=== PATIENT | female | born 2000 | race Caucasian/White ===

== ENCOUNTER 2018-07-30 02:11 | Inpatient (IN) | payer MEDICAID ==
[~2018-07-30] VITALS: Ht 154.9 cm; Wt 52.2 kg
--- NOTE | 2018-07-30 02:11 | NUR ---
BIBA BLS TO ER BED 6
[2018-07-30 02:14] VITALS: BP 122/89
--- NOTE | 2018-07-30 02:15 | NUR ---
PT DISROBED COMPLETELY AND ALL CLOTHING HANDED OVER TO SECURITY ALONG WITH PERSONAL BELONGINGS FOR SAFEKEEPING. BEDSIDE EQUIPMENT AND OTHER CABLES REMOVED FROM ROOM WITH ALL CABINETS AND CONTAINERS LOCKED AND SECURED. SITTER PLACED AT BEDSIDE FOR MONITORING.
--- NOTE | 2018-07-30 02:15 | NUR ---
BIBA FOR TYLENOL OVERDOSE. PT ALERT AND ORIENTED ANSWERING APPROPRIATELY QUESTIONS. PT STATES "NOBODY WANTS HER HERE. HER BABY'S DADDY SAYS SHE'S NO GOOD. PT STATES HERE PARENTS DONT WANT HER. PT STATING HER BABY'S DADDY TOLD HER SHE WAS NOT A GOOD MOTHER AND DOES NOT NEED TO BE AROUND THE BABY." PT HAS ATTEMPTED SUICIDE 2 1/2 YEARS AGO. PT DENIES N/V/D; SKIN IS PINK/WARM/DRY; AAOX4 WITH EVEN AND STEADY GAIT; LUNGS CLEAR BL; HR EVEN AND REGULAR; PATIENT STATES PAIN OF 0/10 AT THIS TIME; VSS; PATIENT POSITIONED FOR COMFORT; HOB ELEVATED; BEDRAILS UP X2; BED DOWN. ER MD MADE AWARE OF PT STATUS.
--- NOTE | 2018-07-30 02:19 | NUR ---
Patient being evaluated by physician at bedside.
[2018-07-30] MEDS ORDERED: ONDANSETRON 4 MG/2 ML VIAL IVP ONE (02:20)
[2018-07-30] MEDS ORDERED: NACL 0.9% 1,000 ML IV ONE ×2 (02:20→03:05)
--- NOTE | 2018-07-30 02:21 | NUR ---
POISON CONTROL CALLED SPOKE TO SHREYA. ADVISED TO GIVE ACTIVATED CHARCOAL, LABS- CMP/ CBC/UA/UDS/SALICYLATES LEVEL, MONITOR AND RE-EVAL FOR 6HOURS, IVF, REPEAT LABS IN 4 HOUR. MONITOR PT FOR S/S OF METABOLIC ACIDOSIS, SEIZURES, AND RENAL INSUFFICIENCY.
[2018-07-30] MEDS ORDERED: ACTIVATED CHARCOAL 50 GM/240 ML TUBE PO ONE (02:25)
--- NOTE | 2018-07-30 02:30 | NUR ---
# 14 FR Urinary catheter inserted utilizing sterile technique. No return of urine at this time. I/O CATH left in place for urine output. Pt tolerated procedure well.
--- NOTE | 2018-07-30 02:35 | NUR ---
EKG PERFORMED AT BEDSIDE WITH MUKUL BENSON PRESENT. PT COVERED IN GOWN AND BLANKET DURING PROCEDURE.
[2018-07-30 02:50] LABS: BASOPHILS % (AUTO) 0.4 % (0.0-2.0); EOSINOPHILS # (AUTO) 0.1 K/uL (0-0.4); EOSINOPHILS % (AUTO) 0.5 % (0.0-4.0); HEMATOCRIT 37.8 % (36-48); HEMOGLOBIN 12.3 g/dL (12.0-16.0); LYMPHOCYTES # (AUTO) 2.6 K/uL (2.5-16.5); LYMPHOCYTES % (AUTO) 20.9 % (20.5-51.1); MEAN CORPUSCULAR HEMOGLOBIN 28 pg (27-31); MEAN CORPUSCULAR HGB CONC 33 g/dL (33-37); MEAN CORPUSCULAR VOLUME 86.1 fL (80-94); MONOCYTES # (AUTO) 0.9 K/uL (0.8-1.0); MONOCYTES % (AUTO) 6.9 % (1.7-9.3); NEUTROPHILS # (AUTO) 8.8 K/uL (1.8-7.7); NEUTROPHILS % (AUTO) 71.3 % (42.2-75.2); PLATELET COUNT (AUTO) 361 K/uL (140-450); RED BLOOD CELL COUNT(AUTO) 4.39 MIL/uL (4.20-5.40); RED CELL DISTRIBUTION WIDTH 15.6 % (11.6-13.7); WHITE BLOOD COUNT (AUTO) 12.4 K/uL (4.5-11.0)
[2018-07-30 02:59] LABS: CARBON DIOXIDE 25.3 mmol/L (21-32); CHLORIDE 105 mmol/L (98-107); CREATININE 0.5 mg/dL (0.6-1.3); GFR ARICAN-AMERICAN 202 mL/min (>90); GLUCOSE 92 mg/dL (74-106); POTASSIUM 3.3 mmol/L (3.5-5.1); SODIUM SERUM 144 mmol/L (136-145); UREA NITROGEN, BLOOD 4 mg/dL (7-18)
[2018-07-30 03:05] LABS: ACETAMINOPHEN < 0.5 ug/ml (10-30); ALBUMIN 4.1 g/dL (3.4-5.0); ASPARTATE AMINOTRANSFERASE 19 U/L (15-37); SALICYLATE < 2.8 mg/dL (2.8-20.0); TOTAL BILIRUBIN 0.2 mg/dL (0.0-1.0)
[2018-07-30] MEDS ORDERED: KCL 20 MEQ/WATER INJ PREMIX 100 ML IV ONE (03:05)
--- NOTE | 2018-07-30 03:15 | NUR ---
NO URINE PRODUCED AT THIS TIME. I/O CATH IN PLACE. PT SLEEPING, EASILY AROUSED.
[2018-07-30] MEDS ORDERED: ONDANSETRON 4 MG/2 ML VIAL IM/IVP PRN (03:40)
[2018-07-30] MEDS ORDERED: ACETAMINOPHEN 325 MG TAB PO PRN (03:40)
[2018-07-30] MEDS ORDERED: DOCUSATE SODIUM 100 MG GELCAP PO PRN (03:40)
--- NOTE | 2018-07-30 03:50 | NUR ---
URINE COLLECTED FROM I/O CATH. I/O CATH REMOVED. PT TOLERATED WELL.
--- NOTE | 2018-07-30 03:54 | NUR ---
Pt transferred to Tele ROOM 111B via BED.
[2018-07-30 04:00] LABS: APPEARANCE,URINE CLEAR (CLEAR); BILIRUBIN,URINE NEGATIVE (NEGATIVE); BLOOD, URINE NEGATIVE (NEGATIVE); COLOR,URINE YELLOW (YELLOW); LEUKOCYTE ESTERASE ,URINE 1+ (NEGATIVE); NITRITE, URINE NEGATIVE (NEGATIVE); PH,URINE 6.5 (5.0-9.0); UGLUCOSE NEGATIVE (NEGATIVE)
[2018-07-30] MEDS ORDERED: NACL 0.9% 1,000 ML IV SCH (04:00)
[2018-07-30 04:05] VITALS: BP 104/64
--- NOTE | 2018-07-30 04:05 | NUR ---
Patient will be admitted to care of DR MAHER. Admited to TELE. Will go to room 111B. Belongings list completed. Report to MUKUL BOWERS.
--- NOTE | 2018-07-30 04:05 | NUR ---
PT ARRIVED ON UNIT VIA [facility] WITH ER NURSE. PT IS AWAKE AND QUIET. PT ABLE TO AMBULATE FROM [facility] INTO BED. RESPIRATIONS ARE EVEN AND UNLABORED. MRSA SWAB COLLECTED. VS TAKEN. IV ACCESS IN L AC 20G WITH POTASSIUM INFUSING. IV IS PATENT AND INTACT. BEDSIDE EQUIPMENT AND OTHER CABLES REMOVED FROM ROOM. . IS AT BEDSIDE SPEAKING WITH PT. PT ANSWERING ALL QUESTIONS AND BECOMING EMOTIONAL. BED IS LOCKED, LOW POSITION WITH SIDE RAILS UP X2. SITTER IN ROOM. WILL CONTINUE TO MONITOR PT.
[2018-07-30 04:10] LABS: BARBITURATE, URINE NEG. ng/ml (NEG <=200); BENZODIAZEPINE, URINE NEG. ng/mL (NEG <=200); CANNABINOID, URINE NEG. ng/mL (NEG <=50); COCAINE, URINE NEG. ng/mL (NEG <=300); OPIATE, URINE NEG. ng/mL (NEG <=2000); PHENCYCLIDINE SCREEN,URINE NEG. ng/mL (NEG <=25); RBC,URINE 0-5 (RARE) /HPF (0-5)
[2018-07-30 04:12] LABS: PROTHROMBIN TIME 10.4 secs (10.8-13.4)
[2018-07-30 04:14] LABS: MAGNESIUM 1.9 mg/dL (1.8-2.4); PHOSPHORUS 2.8 mg/dL (2.5-4.9); THYROID STIMULATING HORMONE 1.57 uIU/mL (0.34-3.74)
--- NOTE | 2018-07-30 04:58 | NUR ---
PT NOW SLEEPING COMFORTABLY IN BED. NO SIGNS OR SYMPTOMS OF DISTRESS. 1:1 SITTER IN ROOM. WILL CONTINUE TO MONITOR.
--- NOTE | 2018-07-30 05:45 | NUR ---
NEW BAG OF IVF STARTED. PT SLEEPING COMFORTABLY IN BED. 1:1 SITTER IN ROOM. NO S/SX OF DISTRESS WILL CONTINUE TO MONITOR.
--- NOTE | 2018-07-30 06:02 | NUR ---
[employer] GOODS STOCK CLERK AT BEDSIDE TO DRAW LABS.
--- NOTE | 2018-07-30 07:10 | NUR ---
endorsed pt to day shift nurse for continuity of care. pt in stable condition.
--- NOTE | 2018-07-30 07:11 | NUR ---
RECEIVED REPORT FROM MANAGER PERFORMANCE RN AT BEDSIDE FOR CONTINUITY OF CARE. PATIENT SLEEPING COMFORTABLY IN BED, RESPIRATIONS EVEN AND UNLABORED ON ROOM AIR. IV SITE PATENT AND INTACT, INFUSING IVF WELL. PATIENT DX IS 5150 FOR SI. SAFETY PRECAUTION IN PLACE, 1:1 SITTER AT BEDSIDE, WILL CONTINUE TO MONITOR PATIENT.
--- NOTE | 2018-07-30 07:53 | NUR ---
PAGED DR. [employer] AT [phone] TO FOLLOW UP WITH CONSULT. SPOKE TO JEANA AT THE EXCHANGE, DR. ALTAMIRANO TRAIN MASTER FOR THE WEEKEND, PAGED WAS SENT OUT. WILL WAIT FOR DR. ALTAMIRANO TO COME AND EVALUATE THE PATIENT.
[2018-07-30 08:00] VITALS: BP 99/47
[2018-07-30] MEDS ORDERED: cefTRIAXone 2,000 MG in DEXTROSE 5% 100 ML IV SCH (08:00)
[2018-07-30 08:25] LABS: ANION GAP 14.4 (8-16); CREATININE 0.5 mg/dL (0.6-1.3); POTASSIUM 3.4 mmol/L (3.5-5.1)
[2018-07-30 08:33] LABS: ACETAMINOPHEN 0.8 ug/ml (10-30); ALBUMIN 3.1 g/dL (3.4-5.0); TOTAL BILIRUBIN 0.1 mg/dL (0.0-1.0)
--- NOTE | 2018-07-30 08:40 | NUR ---
CASSANDRA FROM POISON CONTROL CALLED ASKING FOR UPDATE ABOUT PATIENT. INFORMED HIM OF PATIENT'S INITIAL TYLENOL LEVEL AND FOLLOW UP TEST RESULTS. HE STATED PER POISON CONTROL'S STANDBY WITH PATIENT'S STABLE VS, CASE CLOSED FROM THEIR STANDPOINT. RN VERBALIZED UNDERSTANDING.
[2018-07-30] MEDS ORDERED: LACTOBACILLUS RHAMNOSUS GG 1 EACH CAP PO SCH (09:00)
--- NOTE | 2018-07-30 09:00 | NUR ---
CALLED DR. ALTAM[facility]O[employer]. THEY SAID DR. ESTELA ALTAMIRANO WARDROBE SPECIALIST. CALLED DR. ESTELA ALTAMIRANO ON HIS CELL PHONE AT [phone]. DR. ALTAMIRANO ANSWERED, STATED THAT DR. MOISE [facility], INFORM RN TO CALL DR. MOISE, IF NO ANSWER, TO CALL HIM BACK. RN VERBALIZED UNDERSTANDING. PASSED MESSAGE ONTO CR[employer] BALANCE SPECIALISTAMRIT.
--- NOTE | 2018-07-30 09:05 | NUR ---
[facility] [employer] [facility] CALLED DR ESTELA ALTAMIRANO AND INFORMED HIM THAT DR. MOISE HAS NOT COME TO EVALUATE PATIENT SINCE CONSULT WAS CALLED IN. DR. ALTAMIRANO STATED THAT HE WILL COME IN TODAY TO SEE THE PATIENT.
--- NOTE | 2018-07-30 09:09 | NUR ---
PATIENT MOVED FROM ROOM 111B TO 110A, PATIENT TOLERATED MOVE WELL. ORDERED MEDICATIONS GIVEN. PATIENT TOLERATED THEM WELL. PATIENT NOW BACK TO SLEEPING COMFORTABLY IN BED. NO S/S OF DISTRESS NOTED. 1:1 SITTER AT BEDSIDE. WILL CONTINUE TO MONITOR PATIENT.
--- NOTE | 2018-07-30 10:35 | NUR ---
PATIENT SLEEPING IN BED COMFORTABLY, RESPIRATIONS EVEN AND UNLABORED ON ROOM AIR. 1:[address], CALL LIGHT WITHIN REACH. WILL CONTINUE TO MONITOR PATIENT.
--- NOTE | 2018-07-30 11:25 | NUR ---
DR. ESTELA ALTAMIRANO IN TO SEE THE PATIENT. WILL WAIT FOR HIS EVALUATION.
[2018-07-30 11:45] LABS: BASOPHILS # (AUTO) 0.1 K/uL (0.00-0.22); BASOPHILS % (AUTO) 0.7 % (0.0-2.0); EOSINOPHILS # (AUTO) 0.1 K/uL (0-0.4); EOSINOPHILS % (AUTO) 0.9 % (0.0-4.0); HEMATOCRIT 39.4 % (36-48); HEMOGLOBIN 12.7 g/dL (12.0-16.0); LYMPHOCYTES # (AUTO) 2.7 K/uL (2.5-16.5); LYMPHOCYTES % (AUTO) 28.8 % (20.5-51.1); MEAN CORPUSCULAR HEMOGLOBIN 28 pg (27-31); MEAN CORPUSCULAR HGB CONC 32 g/dL (33-37); MEAN CORPUSCULAR VOLUME 86.1 fL (80-94); MONOCYTES # (AUTO) 0.8 K/uL (0.8-1.0); NEUTROPHILS # (AUTO) 5.6 K/uL (1.8-7.7); NEUTROPHILS % (AUTO) 60.6 % (42.2-75.2); PLATELET COUNT (AUTO) 339 K/uL (140-450); RED BLOOD CELL COUNT(AUTO) 4.58 MIL/uL (4.20-5.40); RED CELL DISTRIBUTION WIDTH 15.9 % (11.6-13.7); WHITE BLOOD COUNT (AUTO) 9.2 K/uL (4.5-11.0)
[2018-07-30 11:53] LABS: ANION GAP 13.1 (8-16); CARBON DIOXIDE 24.6 mmol/L (21-32); CREATININE 0.6 mg/dL (0.6-1.3); POTASSIUM 3.7 mmol/L (3.5-5.1)
[2018-07-30 12:00] VITALS: BP 92/49
--- NOTE | 2018-07-30 12:00 | NUR ---
PATIENT CLEARED FROM [address] ESTELA ALTAMIRANO. INFORMED DR. MAYNARD. WAITING FOR ACETAMINOPHEN LAB RESULTS.
--- NOTE | 2018-07-30 12:30 | NUR ---
LAB RESULTS OUT, DR. MAYNARD INFORMED. NEW DISCHARGE ORDER IN. SECURITY WAS PAGED TO BRING PATIENT'S BELONGINGS. WAITING FOR SECURITY.
--- NOTE | 2018-07-30 12:35 | NUR ---
SECURITY BROUGHT PATIENT'S BELONGINGS.
[2018-07-30] MEDS ORDERED: INFLUENZA VIRUS VACCINE QUAD 0.5 ML SYR IMVAC PRN (12:55)
--- NOTE | 2018-07-30 12:55 | NUR ---
FOUR ATTEMPTS TO CALL PATIENT'S BOYFRIEND, RANJAN, WHO SHE LIVES WITH, AT [phone]. NO ANSWER, CANNOT LEAVE MESSAGE. PATIENT HAS NOT SPOKEN TO HER FAMILY IN TWO YEARS. DOES NOT WANT TO CONTACT THEM. SHE DOES NOT WANT TO CONTACT HER BOYFRIEND TO INFORM HIM THAT SHE IS COMING HOME. ,"I JUST WANT TO GO HOME". RN VERBALIZED UNDERSTANDING.
--- NOTE | 2018-07-30 13:10 | NUR ---
FLU VACCINE GIVEN. PATIENT TOLERATED IT WELL. TELE MONITOR REMOVED, IV REMOVED, IV CATHETER INTACT. ID BANDS CUT. PATIENT TOLERATED THEM WELL. DISCHARGE INSTRUCTIONS AND EDUCATION ABOUT SUICIDAL THOUGHTS GIVEN. PATIENT VERBALIZED UNDERSTANDING. PATIENT NOW CHANGED INTO HER OWN CLOTHING AND WILL WAIT FOR DISCHARGE.
--- NOTE | 2018-07-30 13:45 | NUR ---
NO S/S OF REACTION NOTED FROM FLU VACCINE. PATIENT AMBULATED OFF FLOOR WITH RN. PATIENT DISCHARGED HOME. PATIENT TOOK ALL HER BELONGINGS WITH HER. PATIENT IN STABLE CONDITION.
== END 2018-07-30 13:45 | disposition home or self-care (01) | DRG 817 ==
LOC: MED 02:11 → MTU 03:37
PROVIDERS: ADMIT General Practice; ATTEND General Practice
DX: T39.1X2A Poisoning by 4-Aminophenol derivatives, intentional self-harm, initial encounter (principal); A41.9 Sepsis, unspecified organism; D72.829 Elevated white blood cell count, unspecified; E87.6 Hypokalemia; N39.0 Urinary tract infection, site not specified; F10.129 Alcohol abuse with intoxication, unspecified; F32.9 Major depressive disorder, single episode, unspecified; Y92.89 Other specified places as the place of occurrence of the external cause; Y90.9 Presence of alcohol in blood, level not specified; Z23 Encounter for immunization
CPT/HCPCS: 36415; 80048; 80053; 80076; 80305; 81001; 81025; 83036; 83690; 83735; 84100; 84134; 84443; 85025; 85610; 85730; 87081; 87086; 90658; 93005; 96361; 96365; 96375; 99285; C1758; G0480; G0482; J0696; J2405; J3480; J7030; J7060

== ENCOUNTER 2018-11-25 21:51 | Emergency (ER) | payer MEDICAID ==
[~2018-11-25] VITALS: Ht 160 cm; Wt 58.1 kg
[2018-11-25 22:17] VITALS: BP 128/78
--- NOTE | 2018-11-25 22:19 | NUR ---
PT AMBULATORY TO BR THEN TO ER LOBBY W/ STEADY GAIT IN STABLE CONDITION.
[2018-11-25 22:51] LABS: APPEARANCE,URINE SL CLOUDY (CLEAR); BILIRUBIN,URINE NEGATIVE (NEGATIVE); BLOOD, URINE NEGATIVE (NEGATIVE); COLOR,URINE YELLOW (YELLOW); LEUKOCYTE ESTERASE ,URINE 2+ (NEGATIVE); NITRITE, URINE NEGATIVE (NEGATIVE); UGLUCOSE NEGATIVE (NEGATIVE)
--- NOTE | 2018-11-25 22:58 | NUR ---
PT TAKEN TO BED 5.
--- NOTE | 2018-11-25 23:03 | NUR ---
Ultrasound at bedside.
[2018-11-25 23:05] LABS: RBC,URINE 0-5 /HPF (0-5); WBC,URINE TOO MANY TO COUNT /HPF (0-5)
--- NOTE | 2018-11-25 23:11 | NUR ---
Dr. Pascual evaluating patient at bedside.
--- NOTE | 2018-11-25 23:16 | NUR ---
PT C/O 5/10 BURNING PAIN WHEN URINATION AND 5/10 GENERAL ABDOMINAL PAIN X TODAY. DENIES N/V/D. ABDOMEN SOFT FLAT NONTENDER, BOWEL SOUNDS PRESENT X 4, NORMOACTIVE. LBM TODAY. DENIES CP/SOB/FEVERS/CHILLS.
[2018-11-25 23:29] LABS: BASOPHILS % (AUTO) 0.5 % (0.0-2.0); EOSINOPHILS # (AUTO) 0.1 K/uL (0-0.4); EOSINOPHILS % (AUTO) 1.3 % (0.0-4.0); HEMATOCRIT 43.6 % (36-48); HEMOGLOBIN 14.8 g/dL (12.0-16.0); LYMPHOCYTES # (AUTO) 3.9 K/uL (2.5-16.5); LYMPHOCYTES % (AUTO) 37.8 % (20.5-51.1); MEAN CORPUSCULAR HEMOGLOBIN 30 pg (27-31); MEAN CORPUSCULAR HGB CONC 34 g/dL (33-37); MEAN CORPUSCULAR VOLUME 87.4 fL (80-94); MONOCYTES # (AUTO) 0.8 K/uL (0.8-1.0); NEUTROPHILS # (AUTO) 5.4 K/uL (1.8-7.7); NEUTROPHILS % (AUTO) 52.4 % (42.2-75.2); PLATELET COUNT (AUTO) 364 K/uL (140-450); RED BLOOD CELL COUNT(AUTO) 4.99 MIL/uL (4.20-5.40); RED CELL DISTRIBUTION WIDTH 14.5 % (11.6-13.7); WHITE BLOOD COUNT (AUTO) 10.4 K/uL (4.5-11.0)
[2018-11-25 23:39] LABS: ANION GAP 12.9 (8-16); CARBON DIOXIDE 26.1 mmol/L (21-32); CREATININE 0.5 mg/dL (0.6-1.3)
[2018-11-26 00:18] VITALS: BP 128/78
== END 2018-11-26 00:19 | disposition home or self-care (01) ==
LOC: MED 21:51
DX: O23.41 Unspecified infection of urinary tract in pregnancy, first trimester (principal); Z3A.01 Less than 8 weeks gestation of pregnancy
CPT/HCPCS: 36415; 76801; 80048; 81001; 81025; 84702; 85025; 86900; 86901; 87086; 99284; Q0092